=== PATIENT | female | born 1955 | race American Indian/Alaskan Native ===

== ENCOUNTER 2018-07-16 22:14 | Emergency (ER) | payer SELFPAY ==
[2018-07-16 22:30] VITALS: BP 194/98
== END 2018-07-17 02:00 | disposition left against medical advice (07) ==
LOC: ED 22:14
DX: L29.9 Pruritus, unspecified (principal); Z53.21 Procedure and treatment not carried out due to patient leaving prior to being seen by health care provider

== ENCOUNTER 2019-01-25 06:18 | Day surgery (SDC) | payer OTHER ==
[~2019-01-25 06:18] MED LIST: LACTATED RINGERS 1,000 ML IV SCH; NEURONTIN PO NR; SUBLIMAZE IV PRN; TYLENOL PO SCH; VERSED IV NR
[2019-01-25] MEDS ORDERED: ADRENALIN IV ONE ×2 (06:42→09:18)
[2019-01-25] MEDS ORDERED: DEPO-Medrol ONE (06:42)
[2019-01-25] MEDS ORDERED: MARCAINE-EPI 0.25%-1:200,000 INFILTRATI ONE ×2 (06:42→08:19)
[2019-01-25] MEDS ORDERED: ANCEF/STERILE WATER 2 GM/20 ML IV NR (08:00)
[2019-01-25] MEDS ORDERED: DILAUDID ONE (08:26)
[2019-01-25] MEDS ORDERED: ZEMURON IV ONE (08:27)
[2019-01-25] MEDS ORDERED: XYLOCAINE MPF 2% ONE (08:27)
[2019-01-25] MEDS ORDERED: DIPRIVAN 10 MG/ML IV ONE (08:27)
--- NOTE | 2019-01-25 08:35 | Anesthesia Day of Surgery ---
Anesthesia Day of Surgery - Day of Surgery Patient Examined: Yes Patient H&P Reviewed: Yes Patient is NPO: Yes
--- NOTE | 2019-01-25 08:36 | Anesthesia Consultation ---
Anesthesia Consult and Med Hx Date of service: 01/25/19 - Airway Anesthetic Teeth Evaluation: Chipped ROM Head & Neck: Adequate Mental/Hyoid Distance: Adequate Mallampati Class: Class II Intubation Access Assessment: Probably Good - Pre-Operative Health Status ASA Pre-Surgery Classification: ASA2 Proposed Anesthetic Plan: General Nerve Block: IS - Pulmonary Hx Smoking: Yes (1/2-1 PPD X 40 YRS) Hx Sleep Apnea: No ([place] PRE SCREEN HIGH RISK) - Cardiovascular System Hx Hypertension: Yes (X 1 YR-DOES NOT TAKE RX MEDS) - Other Systems Hx Cancer: No
[2019-01-25] MEDS ORDERED: NEO SYNEPHRINE/NS Syringe(OR USE) IV ONE (09:22)
[2019-01-25] MEDS ORDERED: ZOFRAN ONE (10:20)
[2019-01-25] MEDS ORDERED: TORADOL ONE (10:20)
[2019-01-25] MEDS ORDERED: BLOXIVERZ ONE (10:27)
[2019-01-25] MEDS ORDERED: ROBINUL ONE (10:27)
--- NOTE | 2019-01-25 10:39 | Procedure Note ---
Date of procedure: 01/25/19 Pre-op diagnosis: full-thickness rotator cuff tear right shoulder Post-op diagnosis: same Procedure: Arthroscopy right shoulder with subacromial decompression and rotator cuff tendon using suture anchors Procedure The patient was given a right interscalene block for postop pain management next the patient was brought to the OR placed in the OR table in supine position following induction and intubation by anesthesia patient was placed in the left lateral decubitus position the right upper extremity was prepped and draped in the usual sterile manner. A timeout procedure was done to identify the patient and the correct operative site. Routine arthroscopic portals were made following introduction of the arthroscope and instruments and insufflation of the subacromial space with normal saline solution patient was noted to have a full-thickness rotator cuff tear which extended from the supraspinatus anteriorly towards the infraspinatus posteriorly in addition she was also noted to have abundant synovial bursal thickening as well as significant impingement from the acromion and acromioclavicular joints. Using a tissue ablator the soft tissue was removed from both the bursal tissues as well as the periosteal tissues overlying the distal acromion and acromioclavicular joints A large bur was used to debride the bony impingement again this was done under arthroscopic visualization. The anatomic footprint was then seen and debrided using the tissue ablator the rotator cuff tendon was grasped using a tissue grasper and appeared to move quite mobile and to anterior cruciate ligament footprint. Next 2 suture anchor sutures were placed into these supraspinatus tendon anteriorly as well as the infraspinatus tendon posteriorly the suture anchors were secured into the greater tuberosity followed by tightening of the sutures and pulling the rotator cuff tendon firmly onto the anatomic footprint arthroscopic photographs were obtained showing good placement of the rotator cuff repair following this the wound was copiously irrigated via stab wounds were repaired with 2 postop dressings were applied the patient was extubated and was taken to postanesthesia recovery in stable condition. Anesthesia: MAC, regional Surgeon: ALEXANDRIA BEE Estimated blood loss: minimal Pathology: none Condition: stable Disposition: PACU
[2019-01-25] MEDS ORDERED: SUBLIMAZE IV PRN (10:53)
[2019-01-25] MEDS ORDERED: ZOFRAN IV PRN (10:53)
[2019-01-25 11:17] VITALS: BP 138/53
--- NOTE | 2019-01-25 12:07 | Post Anesthesia Evaluation ---
- Post Anesthesia Evaluation Patient Participated: Yes Airway Patent: Yes Stable Respiratory Function: Yes Nausea/Vomiting: No Temp > 96.8F: Yes Pain Manageable: Yes Adequeate Hydration: Yes Anesthesia Complications: No Block Receding Appropriately: No (For post-op analgesia) Patient on Ventilator: No
== END 2019-01-25 06:19 | disposition home or self-care (01) ==
LOC: OR 06:18
PROVIDERS: ATTEND Orthopaedic Surgery
DX: M75.101 Unspecified rotator cuff tear or rupture of right shoulder, not specified as traumatic (principal); F17.210 Nicotine dependence, cigarettes, uncomplicated; E78.00 Pure hypercholesterolemia, unspecified; I10 Essential (primary) hypertension; F41.9 Anxiety disorder, unspecified; Z88.2 Allergy status to sulfonamides; Z88.5 Allergy status to narcotic agent; Z79.899 Other long term (current) drug therapy; Z90.49 Acquired absence of other specified parts of digestive tract; Z90.710 Acquired absence of both cervix and uterus; Z88.8 Allergy status to other drugs, medicaments and biological substances
CPT/HCPCS: 29826; 29827; C1713; J0171; J0690; J1170; J1885; J2250; J2370; J2405; J2704; J2710; J3010; J7120; J1030

== ENCOUNTER 2020-01-31 12:38 | Emergency (ER) | payer SELFPAY ==
--- NOTE | 2020-01-31 14:01 | Emergency Department Report ---
Blank Doc - Documentation Documentation: 64-year-old female that presents with bilateral hand swelling. This initial assessment/diagnostic orders/clinical plan/treatment(s) is/are subject to change based on patient's health status, clinical progression and re- assessment by fellow clinical providers in the ED. Further treatment and workup at subsequent clinical providers discretion. Patient/guardians urged not to elope from the ED as their condition may be serious if not clinically assessed and managed. Initial orders include: 1- Patient sent to MAIN ED for further evaluation and treatment 2- labs 3- EKG
--- NOTE | 2020-01-31 14:39 | XRay Report ---
CHEST 2 VIEWS INDICATION / CLINICAL INFORMATION: Chest Pain. COMPARISON: 09/08/2009 FINDINGS: SUPPORT DEVICES: None. HEART / MEDIASTINUM: No significant abnormality. LUNGS / PLEURA: No significant pulmonary or pleural abnormality. No pneumothorax. ADDITIONAL FINDINGS: No significant additional findings. IMPRESSION: No significant abnormality or change from 09/08/2009 Signer Name: Fly Ngo MD FACR Signed: 01/31/2020 2:34 PM Workstation Name: [id number]
[2020-01-31 15:00] LABS: Basophils % (Auto) 0.8 % (0.0-1.8); Eosinophils # (Auto) 0.3 K/mm3 (0.0-0.4); Eosinophils % (Auto) 5.9 % (0.0-4.3); Hematocrit 44.1 % (30.3-42.9); Hemoglobin 14.4 gm/dl (10.1-14.3); Lymphocytes # (Auto) 1.6 K/mm3 (1.2-5.4); Lymphocytes % (Auto) 32.4 % (13.4-35.0); Mean Corpuscular HGB Conc 33 % (30-34); Mean Corpuscular Volume 89 fl (79-97); Monocytes # (Auto) 0.4 K/mm3 (0.0-0.8); Monocytes % (Auto) 7.4 % (0.0-7.3); Platelet Count 247 K/mm3 (140-440); Red Blood Count 4.97 M/mm3 (3.65-5.03); Red Cell Distribution Width 13.9 % (13.2-15.2)
[2020-01-31 15:08] LABS: INR 0.85 (0.87-1.13)
[2020-01-31 15:12] LABS: Partial Thromboplastin Time 29.6 Sec. (24.2-36.6)
[2020-01-31 15:22] LABS: Alanine Aminotransferase 16 units/L (7-56); Albumin 4.1 g/dL (3.9-5); BUN/Creatinine Ratio 11; Blood Urea Nitrogen 9 mg/dL (7-17); Calcium 9.2 mg/dL (8.4-10.2); Hemolysis Index 5
[2020-01-31 17:55] LABS: Bilirubin,Urine NEG (Negative); Blood,Urine NEG (Negative); Color,Urine Yellow (Yellow); Mucus,Urine FEW /HPF; Protein,Urine <15 mg/dL mg/dL (Negative); Urobilinogen,Urine < 2.0 mg/dL (<2.0)
[2020-01-31] MEDS ORDERED: methylPREDNISolone Sod Succinate 125 MG/2 ML INJ IM ONE (17:59)
[2020-01-31] MEDS ORDERED: NAPROXEN 500 MG TAB PO ONE (17:59)
[2020-01-31] MEDS ORDERED: ONDANSETRON 4 MG ODT TAB PO ONE (18:00)
[2020-01-31] MEDS ORDERED: HYDROcodone/ACETAMINOPHEN 5-325 MG TAB PO ONE (18:00)
--- NOTE | 2020-01-31 18:05 | Emergency Department Report ---
ED General Adult HPI - General Chief complaint: Extremity Injury, Upper Stated complaint: SWELLING HANDS Time Seen by Provider: 01/31/20 14:00 Source: patient Mode of arrival: Ambulatory Limitations: No Limitations - History of Present Illness Initial comments: Patient presents to the emergency department with a chief complaint of joint swelling of her hands for the last 3 days. Patient states that 3 days ago she used her hands a lot while moving and unpacking her items at her new home. Patient states after waking up the day after moving she noticed her hands were swollen. Patient denies swelling in any other joints. Patient also denies fever. -: Gradual Location: upper extremity Severity scale (0 -10): 4 Quality: aching Consistency: constant Improves with: none Worsens with: none Associated Symptoms: denies other symptoms Treatments Prior to Arrival: none - Related Data Previous Rx's Medication Instructions Recorded Last Taken Type Oxycodone HCl/Acetaminophen 1 each PO Q6HR PRN #30 tablet 01/25/19 Unknown Rx [Percocet 7.5/325 mg] Ibuprofen [Motrin] 800 mg PO Q8HR PRN #30 tablet 01/31/20 Unknown Rx predniSONE [Deltasone] 20 mg PO DAILY #15 tablet 01/31/20 Unknown Rx Allergies Allergy/AdvReac Type Severity Reaction Status Date / Time codeine Allergy Itching Verified 10/31/15 17:31 sulfamethoxazole Allergy Hives Verified 10/31/15 17:31 [From ] trimethoprim [From ] Allergy Hives Verified 10/31/15 17:31 ED Review of Systems ROS: Stated complaint: SWELLING HANDS Other details as noted in HPI Comment: All other systems reviewed and negative Constitutional: denies: chills, fever Eyes: denies: eye pain, eye discharge, vision change ENT: denies: ear pain, throat pain Respiratory: denies: cough, shortness of breath, wheezing Cardiovascular: denies: chest pain, palpitations Endocrine: no symptoms reported Gastrointestinal: denies: abdominal pain, nausea, diarrhea Genitourinary: denies: urgency, dysuria, discharge Musculoskeletal: joint swelling. denies: back pain, arthralgia Skin: denies: rash, lesions Neurological: denies: headache, weakness, paresthesias Psychiatric: denies: anxiety, depression Hematological/Lymphatic: denies: easy bleeding, easy bruising ED Past Medical Hx - Past Medical History Hx Hypertension: Yes (X 1 YR-DOES NOT TAKE RX MEDS) Hx Psychiatric Treatment: Yes (ANXIETY) Hx HIV: No - Surgical History Hx Cholecystectomy: Yes Additional Surgical History: Hysterectomy. Lumbar fusion-2005. TUBAL LIGATION - Social History Smoking Status: Current Every Day Smoker Substance Use Type: Alcohol - Medications Home Medications: Home Medications Medication Instructions Recorded Confirmed Last Taken Type Oxycodone HCl/Acetaminophen 1 each PO Q6HR PRN #30 tablet 01/25/19 Unknown Rx [Percocet 7.5/325 mg] Ibuprofen [Motrin] 800 mg PO Q8HR PRN #30 tablet 01/31/20 Unknown Rx predniSONE [Deltasone] 20 mg PO DAILY #15 tablet 01/31/20 Unknown Rx ED Physical Exam - General Limitations: No Limitations General appearance: alert, in no apparent distress - Head Head exam: Present: atraumatic, normocephalic - Eye Eye exam: Present: normal appearance, PERRL, EOMI - ENT ENT exam: Present: mucous membranes moist - Neck Neck exam: Present: normal inspection - Respiratory Respiratory exam: Present: normal lung sounds bilaterally. Absent: respiratory distress - Cardiovascular Cardiovascular Exam: Present: regular rate, normal rhythm. Absent: systolic murmur, diastolic murmur, rubs, gallop - GI/Abdominal GI/Abdominal exam: Present: soft, normal bowel sounds - Extremities Exam Extremities exam: Present: joint swelling - Back Exam Back exam: Present: normal inspection - Neurological Exam Neurological exam: Present: alert, oriented X3 - Psychiatric Psychiatric exam: Present: normal affect, normal mood - Skin Skin exam: Present: warm, dry, intact, normal color. Absent: rash ED Course Vital Signs 01/31/20 01/31/20 01/31/20 13:57 17:27 17:32 Temperature 98.5 F Pulse Rate 71 75 Respiratory 18 18 18 Rate Blood Pressure 156/85 Blood Pressure 146/76 [Right] O2 Sat by Pulse 100 100 Oximetry ED Medical Decision Making - Lab Data Result diagrams: 01/31/20 14:38 01/31/20 14:38 Lab Results 01/31/20 01/31/20 01/31/20 Range/Units 14:38 14:38 14:38 WBC 5.0 (4.5-11.0) K/mm3 RBC 4.97 (3.65-5.03) M/mm3 Hgb 14.4 H (10.1-14.3) gm/dl Hct 44.1 H (30.3-42.9) % MCV 89 (79-97) fl MCH 29 (28-32) pg MCHC 33 (30-34) % RDW 13.9 (13.2-15.2) % Plt Count 247 (140-440) K/mm3 Lymph % (Auto) 32.4 (13.4-35.0) % [place] % (Auto) 7.4 H (0.0-7.3) % Eos % (Auto) 5.9 H (0.0-4.3) % Baso % (Auto) 0.8 (0.0-1.8) % Lymph # 1.6 (1.2-5.4) K/mm3 [place] # 0.4 (0.0-0.8) K/mm3 Eos # 0.3 (0.0-0.4) K/mm3 Baso # 0.0 (0.0-0.1) K/mm3 Seg Neutrophils % 53.5 (40.0-70.0) % Seg Neutrophils # 2.7 (1.8-7.7) K/mm3 PT 11.7 L (12.2-14.9) Sec. INR 0.85 L (0.87-1.13) APTT 29.6 (24.2-36.6) Sec. Sodium 140 (137-145) mmol/L Potassium 3.9 (3.6-5.0) mmol/L Chloride 102.5 (98-107) mmol/L Carbon Dioxide 23 (22-30) mmol/L Anion Gap 18 mmol/L BUN 9 (7-17) mg/dL Creatinine 0.8 (0.7-1.2) mg/dL Estimated GFR > 60 ml/min BUN/Creatinine Ratio 11 % Glucose 108 H (65-100) mg/dL Calcium 9.2 (8.4-10.2) mg/dL Magnesium (1.7-2.3) mg/dL Total Bilirubin 0.30 (0.1-1.2) mg/dL AST 27 (5-40) units/L ALT 16 (7-56) units/L Alkaline Phosphatase 129 (35-129) units/L Troponin T < 0.010 (0.00-0.029) ng/mL NT-Pro-B Natriuret Pep (0-900) pg/mL Total Protein 7.4 (6.3-8.2) g/dL Albumin 4.1 (3.9-5) g/dL Albumin/Globulin Ratio 1.2 % Urine Color (Yellow) Urine Turbidity (Clear) Urine pH (5.0-7.0) Ur Specific [place] (1.003-1.030) Urine Protein (Negative) mg/dL Urine Glucose (UA) (Negative) mg/dL Urine Ketones (Negative) mg/dL Urine Blood (Negative) Urine Nitrite (Negative) Urine Bilirubin (Negative) Urine Urobilinogen (<2.0) mg/dL Ur Leukocyte Esterase (Negative) Urine WBC (Auto) (0.0-6.0) /HPF Urine RBC (Auto) (0.0-6.0) /HPF U Epithel Cells (Auto) (0-13.0) /HPF Urine Mucus /HPF 01/31/20 01/31/20 Range/Units 14:38 17:40 WBC (4.5-11.0) K/mm3 RBC (3.65-5.03) M/mm3 Hgb (10.1-14.3) gm/dl Hct (30.3-42.9) % MCV (79-97) fl MCH (28-32) pg MCHC (30-34) % RDW (13.2-15.2) % Plt Count (140-440) K/mm3 Lymph % (Auto) (13.4-35.0) % [place] % (Auto) (0.0-7.3) % Eos % (Auto) (0.0-4.3) % Baso % (Auto) (0.0-1.8) % Lymph # (1.2-5.4) K/mm3 [place] # (0.0-0.8) K/mm3 Eos # (0.0-0.4) K/mm3 Baso # (0.0-0.1) K/mm3 Seg Neutrophils % (40.0-70.0) % Seg Neutrophils # (1.8-7.7) K/mm3 PT (12.2-14.9) Sec. INR (0.87-1.13) APTT (24.2-36.6) Sec. Sodium (137-145) mmol/L Potassium (3.6-5.0) mmol/L Chloride (98-107) mmol/L Carbon Dioxide (22-30) mmol/L Anion Gap mmol/L BUN (7-17) mg/dL Creatinine (0.7-1.2) mg/dL Estimated GFR ml/min BUN/Creatinine Ratio % Glucose (65-100) mg/dL Calcium (8.4-10.2) mg/dL Magnesium 2.10 (1.7-2.3) mg/dL Total Bilirubin (0.1-1.2) mg/dL AST (5-40) units/L ALT (7-56) units/L Alkaline Phosphatase (35-129) units/L Troponin T (0.00-0.029) ng/mL NT-Pro-B Natriuret Pep 62.53 (0-900) pg/mL Total Protein (6.3-8.2) g/dL Albumin (3.9-5) g/dL Albumin/Globulin Ratio % Urine Color Yellow (Yellow) Urine Turbidity Clear (Clear) Urine pH 5.0 (5.0-7.0) Ur Specific [place] 1.015 (1.003-1.030) Urine Protein <15 mg/dl (Negative) mg/dL Urine Glucose (UA) Neg (Negative) mg/dL Urine Ketones Neg (Negative) mg/dL Urine Blood Neg (Negative) Urine Nitrite Neg (Negative) Urine Bilirubin Neg (Negative) Urine Urobilinogen < 2.0 (<2.0) mg/dL Ur Leukocyte Esterase Neg (Negative) Urine WBC (Auto) 1.0 (0.0-6.0) /HPF Urine RBC (Auto) 1.0 (0.0-6.0) /HPF U Epithel Cells (Auto) 2.0 (0-13.0) /HPF Urine Mucus Few /HPF Critical care attestation.: If time is entered above; I have spent that time in minutes in the direct care of this critically ill patient, excluding procedure time. ED Disposition Clinical Impression: Joint swelling, Arthralgia Disposition: TO HOME OR SELFCARE Is pt being admited?: No Does the pt Need Aspirin: No Condition: Fair Instructions: Arthralgia (ED) Additional Instructions: return if worse Referrals: SHANEKA SILVERIO MD [Primary Care Provider] - 3-5 Days Time of Disposition: 18:02
[2020-01-31 18:51] VITALS: BP 140/81
== END 2020-01-31 18:58 | disposition home or self-care (01) ==
LOC: ED 12:38
DX: M25.40 Effusion, unspecified joint (principal); F41.9 Anxiety disorder, unspecified; F17.200 Nicotine dependence, unspecified, uncomplicated
CPT/HCPCS: 36415; 71046; 80053; 81001; 83735; 83880; 84484; 85025; 85610; 85730; 93005; 93010; 96372; 99284; J2930; Q0162

== ENCOUNTER 2021-10-07 13:05 | Outpatient (CLI) | payer MEDICARE ==
--- NOTE | 2021-10-07 15:05 | XRay Report ---
AP pelvis INDICATION: PAIN IN LEFT HIP. COMPARISON: None. IMPRESSION: No acute osseous abnormality. Soft tissues are normal. Normal alignment. Mild degener ative arthrosis in the SI joints. The hips are unremarkable. Signer Name: Alon Harris MD Signed: 10/07/2021 2:57 PM Workstation Name: [id number]
--- NOTE | 2021-10-07 15:05 | XRay Report ---
Lumbar spine-3 views INDICATION: BACK PAIN. COMPARISON: None. IMPRESSION: Grade 1 anterolisthesis of L5 on S1. There is a left paracentral spinal construct spanni ng L3-5 with no hardware complication. Moderate discogenic DJD and facet arthropathy at L5/S1. No a cute osseous or soft tissue abnormality. Signer Name: Alon Harris MD Signed: 10/07/2021 2:56 PM Workstation Name: [id number]
== END 2021-10-07 13:06 | disposition home or self-care (01) ==
LOC: XRAY 13:05
PROVIDERS: ATTEND Orthopaedic Surgery
DX: M47.817 Spondylosis without myelopathy or radiculopathy, lumbosacral region (principal); M75.121 Complete rotator cuff tear or rupture of right shoulder, not specified as traumatic; M16.12 Unilateral primary osteoarthritis, left hip
CPT/HCPCS: 72100; 72170